=== PATIENT | male | born 1980 | race Caucasian/White ===

== ENCOUNTER → 2017-08-23 | Outpatient (CLI) | payer BC, OTHER ==
[2017-08-23 07:58] LABS: BASO % 0.1 % (0.0-1.0); EOS # 0.2 10^3/uL (0.0-0.50); EOS % 3.3 % (0.0-3.0); HEMATOCRIT 44.4 % (42.0-52.0); IMMATURE GRANULOCYTE % 0.3 % (0-3.0); LYMPH # 1.9 10^3/uL (1.5-4.5); LYMPH % 25.9 % (24.0-44.0); MEAN CORPUSCULAR HEMOGLOBIN 29.3 pg (27.0-33.0); MEAN CORPUSCULAR HGB CONC 33.8 g/dl (32.0-36.5); MEAN CORPUSCULAR VOLUME 86.7 fl (80.0-96.0); MONO # 0.6 10^3/uL (0.0-0.8); MONO % 7.6 % (0.0-5.0); NEUTROPHILS # 4.6 10^3/uL (1.8-7.7); NEUTROPHILS % 62.8 % (36.0-66.0); PLATELET COUNT, AUTOMATED 201 10^3/uL (150-450); RED BLOOD COUNT 5.12 10^6/uL (4.30-6.10); RED CELL DISTRIBUTION WIDTH 12.5 % (11.5-14.5); WHITE BLOOD COUNT 7.3 10^3/uL (4.0-10.0)
[2017-08-23 08:22] LABS: ALBUMIN 4.3 GM/DL (3.2-5.2); ALBUMIN/GLOBULIN RATIO 1.54 (1.00-1.93); ALKALINE PHOSPHATASE 45 U/L (45-117); ALT/SGPT 59 U/L (12-78); ANION GAP 6 MEQ/L (8-16); AST/SGOT 25 U/L (7-37); BILIRUBIN,TOTAL 0.8 MG/DL (0.2-1.0); BLOOD UREA NITROGEN 18 MG/DL (7-18); CALCIUM LEVEL 8.9 MG/DL (8.5-10.1); CARBON DIOXIDE LEVEL 29 MEQ/L (21-32); CHLORIDE LEVEL 106 MEQ/L (98-107); CHOLESTEROL LEVEL 89 MG/DL (<200); CHOLESTEROL RISK RATIO 1.977 (<5); CREATININE FOR GFR 1.13 MG/DL (0.70-1.30); GLOMERULAR FILTRATION RATE > 60.0 (>60); GLUCOSE, FASTING 105 MG/DL (70-100); HDL CHOLESTEROL 45 MG/DL (>40); LDL CHOLESTEROL 27.4 MG/DL (<100); NON-HDL-C 44 MG/DL; POTASSIUM SERUM 4.3 MEQ/L (3.5-5.1); SODIUM LEVEL 141 MEQ/L (136-145); TOTAL PROTEIN 7.1 GM/DL (6.4-8.2); TRIGLYCERIDES LEVEL 83 MG/DL (<150)
== END ==
LOC: M LAB 07:29
DX: E78.5 Hyperlipidemia, unspecified (principal); K21.9 Gastro-esophageal reflux disease without esophagitis
CPT/HCPCS: 80053

== ENCOUNTER 2017-11-15 09:20 | Day surgery (SDC) | payer BC, OTHER ==
[2017-11-15] MEDS: NS 1,000 ML IV (09:33)
[2017-11-15] MEDS ORDERED: fentaNYL 100 MCG/2 ML INJECTION (J3010) As Ordered (09:53)
[2017-11-15] MEDS ORDERED: PROPOFOL 200 MG/20 ML VIAL As Ordered ×2 (10:12)
[2017-11-15] MEDS ORDERED: LIDOCAINE 2% INJ 100 MG/5 ML SDV (FOR ANES.) As Ordered (10:12)
== END 2017-11-15 10:55 | disposition home or self-care (01) ==
LOC: M OPP 09:20
DX: R12 Heartburn (principal); R14.0 Abdominal distension (gaseous); K22.8 Other specified diseases of esophagus; K44.9 Diaphragmatic hernia without obstruction or gangrene; I25.10 Atherosclerotic heart disease of native coronary artery without angina pectoris; Z95.5 Presence of coronary angioplasty implant and graft; I25.2 Old myocardial infarction; I10 Essential (primary) hypertension; E78.5 Hyperlipidemia, unspecified; K21.9 Gastro-esophageal reflux disease without esophagitis; M54.9 Dorsalgia, unspecified; R51 Headache; Z79.82 Long term (current) use of aspirin; Z79.899 Other long term (current) drug therapy; Z79.01 Long term (current) use of anticoagulants; Z80.3 Family history of malignant neoplasm of breast
CPT/HCPCS: 43239

== ENCOUNTER → 2018-04-23 | Outpatient (REF) | payer BC, OTHER ==
[2018-04-25 00:06] LABS: H PYLORI STOOL ANTIGEN Negative (Negative)
== END ==
LOC: M LAB REF 10:16
DX: R12 Heartburn (principal)
CPT/HCPCS: 87338

== ENCOUNTER → 2018-09-22 | Outpatient (CLI) | payer OTHER, BC ==
[~2018-09-22] MED LIST: ASPI81TA26 PO; ATOR80TA59; BRIL90TA; LISI-542; METO1TAB32; MULT1TAB10 PO; NITR0.4S14; PANT40TA3; PROBCAP4 PO
[2018-09-22 19:36] LABS: BASO % 0.3 % (0.0-1.0); EOS # 0.3 10^3/uL (0.0-0.50); EOS % 4.5 % (0.0-3.0); HEMATOCRIT 48.4 % (42.0-52.0); HEMOGLOBIN 15.8 g/dl (13.5-17.5); LYMPH # 2.1 10^3/uL (1.5-4.5); LYMPH % 32.5 % (24.0-44.0); MEAN CORPUSCULAR HEMOGLOBIN 29.1 pg (27.0-33.0); MEAN CORPUSCULAR HGB CONC 32.6 g/dl (32.0-36.5); MEAN CORPUSCULAR VOLUME 89.1 fl (80.0-96.0); MONO # 0.5 10^3/uL (0.0-0.8); MONO % 8.4 % (0.0-5.0); NEUTROPHILS # 3.5 10^3/uL (1.8-7.7); NEUTROPHILS % 54.1 % (36.0-66.0); PLATELET COUNT, AUTOMATED 196 10^3/uL (150-450); RED BLOOD COUNT 5.43 10^6/uL (4.30-6.10); WHITE BLOOD COUNT 6.5 10^3/uL (4.0-10.0)
[2018-09-22 20:09] LABS: ALBUMIN 4.3 GM/DL (3.2-5.2); ALT/SGPT 57 U/L (12-78); BLOOD UREA NITROGEN 14 MG/DL (7-18); CALCIUM LEVEL 8.8 MG/DL (8.5-10.1); CARBON DIOXIDE LEVEL 28 MEQ/L (21-32); CHLORIDE LEVEL 104 MEQ/L (98-107); CHOLESTEROL LEVEL 89 MG/DL (<200); CHOLESTEROL RISK RATIO 2.225 (<5); CREATININE FOR GFR 1.19 MG/DL (0.70-1.30); GLOMERULAR FILTRATION RATE > 60.0 (>60); GLUCOSE, FASTING 99 MG/DL (70-100); HDL CHOLESTEROL 40 MG/DL (>40); LDL CHOLESTEROL 32 MG/DL (<100); MAGNESIUM LEVEL 2.1 MG/DL (1.8-2.4); NON-HDL-C 49 MG/DL; POTASSIUM SERUM 4.3 MEQ/L (3.5-5.1); SODIUM LEVEL 139 MEQ/L (136-145); TOTAL PROTEIN 7.1 GM/DL (6.4-8.2); TRIGLYCERIDES LEVEL 84 MG/DL (<150)
== END ==
LOC: M WUC 08:20
PROVIDERS: ATTEND Physician Assistant
DX: I10 Essential (primary) hypertension (principal); I25.10 Atherosclerotic heart disease of native coronary artery without angina pectoris

== ENCOUNTER → 2019-09-12 | Outpatient (REF) | payer OTHER, MEDICAID | LOC: M LAB REF 18:50 | PROVIDERS: ATTEND Dermatology | DX: D49.2 Neoplasm of unspecified behavior of bone, soft tissue, and skin (principal) ==

== ENCOUNTER → 2019-11-11 | Outpatient (REF) | payer OTHER | LOC: M LAB REF 08:30 | PROVIDERS: ATTEND Dermatology | DX: D22.39 Melanocytic nevi of other parts of face (principal); D18.09 Hemangioma of other sites ==

== ENCOUNTER → 2020-05-21 | Outpatient (CLI) | payer BC, OTHER ==
[~2020-05-21] MED LIST changes: +PANT40TA29; -PANT40TA3
--- NOTE | 2020-05-21 16:18 | REP ---
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 COMPARISON: None. TECHNIQUE: Real-time sonographic evaluation of scrotum and contents performed. FINDINGS: The testicles are normal in size and echotexture, right testicle measuring 5.1 x 2.0 x 2.8 cm left testicle 4.8 x 2.2 x 2.6 cm. There is no testicular mass or torsion, blood flow seen in each testicle with duplex Doppler evaluation. Epididymis is unremarkable bilaterally. Prominent venous structures there are seen bilaterally with reflux of blood flow with Valsalva maneuver. These measure up to 3 mm in diameter. In the region of the tail of the right epididymis at the site of a palpable lump there is a hypoechoic nodule which measures 1.2 x 0.8 x 1.0 cm. This appears solid. There is internal blood flow with Doppler evaluation. IMPRESSION: Solid nodule in the region of the tail of the right epididymis with a maximum diameter of 1.2 cm. Vast majority of masses of the epididymis are benign (94%). These are most commonly adenomatoid tumor. No testicular mass. <Electronically signed by Hermes Larry > 05/21/20 [id number]
== END ==
LOC: M RAD 14:13
PROVIDERS: ATTEND Surgery
DX: D40.11 Neoplasm of uncertain behavior of right testis (principal)

== ENCOUNTER → 2020-12-04 | Outpatient (CLI) | payer BC, OTHER ==
[~2020-12-04] MED LIST changes: -LISI-542; +LISI-898
[2020-12-04 14:20] LABS: ALBUMIN 4.2 GM/DL (3.2-5.2); ALT/SGPT 43 U/L (12-78); BILIRUBIN,TOTAL 0.9 MG/DL (0.2-1.0); BLOOD UREA NITROGEN 15 MG/DL (7-18); CALCIUM LEVEL 9.2 MG/DL (8.5-10.1); CARBON DIOXIDE LEVEL 29 MEQ/L (21-32); CHLORIDE LEVEL 105 MEQ/L (98-107); CHOLESTEROL LEVEL 109 MG/DL (<200); CHOLESTEROL RISK RATIO 2.868 (<5); CREATININE FOR GFR 1.07 MG/DL (0.70-1.30); GLOMERULAR FILTRATION RATE > 60.0 (>60); GLUCOSE, FASTING 105 MG/DL (70-100); HDL CHOLESTEROL 38 MG/DL (>40); LDL CHOLESTEROL 47 MG/DL (<100); NON-HDL-C 71 MG/DL; SODIUM LEVEL 137 MEQ/L (136-145); TOTAL PROTEIN 7.1 GM/DL (6.4-8.2); TRIGLYCERIDES LEVEL 119 MG/DL (<150)
== END ==
LOC: M PLALAB 09:30
PROVIDERS: ATTEND Nurse Practitioner Family
DX: I10 Essential (primary) hypertension (principal); E78.2 Mixed hyperlipidemia

== ENCOUNTER → 2021-02-25 | Outpatient (CLI) | payer BC, OTHER ==
--- NOTE | 2021-02-25 16:50 | REP ---
INDICATION: EPIDIDYMAL MASS COMPARISON: 05/21/2020 TECHNIQUE: Larry scale and color Doppler evaluation using linear and curved array transducer with color Doppler evaluation. FINDINGS: The testicles and epididymi are relatively normal in contour, size, echogenicity, vascularity and overall appearance. Previously noted right epididymal lesion is not identified by current examination. Incidental 3 mm left epididymal cyst noted. There is no evidence for intratesticular mass lesion, infectious/inflammatory process, or torsion. No significant hydrocele. Mildly prominent left sided veins measure up to 2.5 mm. Right testicle measures 5.0 x 1.8 x 3.1 cm. Left testicle measures 4.7 x 2.0 x 3.0 cm. IMPRESSION: Essentially normal scrotal ultrasound. No obvious right epididymal mass identified by current exam. Question early left varicoceles. <Electronically signed by [place] > 02/25/21 [id number]
== END ==
LOC: M RAD 15:59
PROVIDERS: ATTEND Urology
DX: N50.9 Disorder of male genital organs, unspecified (principal)